=== PATIENT | male | born 1955 | race Caucasian/White ===

== ENCOUNTER 2018-11-25 03:50 | Emergency (ER) | payer OTHER ==
[2018-11-25] MEDS: LIDOCAINE 2% JEL.PF.APP 5 ML UROJET SYRINGE MM (04:23)
[2018-11-25 04:42] LABS: ADD UMIC YES; UR ASCORBIC ACID NEGATIVE (NEGATIVE); UR BILIRUBIN (Dip) NEGATIVE (NEGATIVE); UR BLOOD (Dip) 2+ mg/dL (NEGATIVE); UR CLARITY CLEAR (CLEAR); UR COLOR YELLOW (YELLOW); UR GLUCOSE (Dip) NEGATIVE (NEGATIVE); UR KETONES (Dip) TRACE mg/dL (NEGATIVE); UR LEUKOCYTE ESTERASE (Dip) NEGATIVE Leu/ul (NEGATIVE); UR NITRITE (Dip) NEGATIVE (NEGATIVE); UR RBC 93 /HPF (0-5); UR SPECIFIC GRAVITY (Dip) 1.014 (1.003-1.030); UR TOTAL PROTEIN (Dip) NEGATIVE (NEGATIVE); UR UROBILINOGEN (Dip) NEGATIVE (NEGATIVE); UR WBC 1 /HPF (0-5)
== END 2018-11-25 05:03 | disposition home or self-care (01) ==
LOC: E/R 03:50
DX: R33.9 Retention of urine, unspecified (principal); F17.210 Nicotine dependence, cigarettes, uncomplicated
CPT/HCPCS: 51702; 81001; 87086; 99283-25